=== PATIENT | female | born 1965 | race Two or more races ===

== ENCOUNTER 2025-01-03 15:01 | Emergency (ER) | payer BC, OTHER ==
[2025-01-03] MEDS ORDERED: ACETAMINOPHEN 325 MG TABLET (FP) ONE (15:32)
[2025-01-03] MEDS: ACETAMINOPHEN 325 MG TABLET (FP) PO ONE (15:33)
[2025-01-03 15:41] VITALS: BP 113/72; PULSE 62; RESP 18; TEMP 98.2; BMI 26.2
== END 2025-01-03 15:45 | disposition home or self-care (01) ==
LOC: FER 15:01
DX: S20.224A Contusion of middle back wall of thorax, initial encounter (principal); W01.0XXA Fall on same level from slipping, tripping and stumbling without subsequent striking against object, initial encounter; Y92.007 Garden or yard of unspecified non-institutional (private) residence as the place of occurrence of the external cause
CPT/HCPCS: 72070-TC-FY; 99285-25